=== PATIENT | female | born 1970 | race Caucasian/White ===

== ENCOUNTER 2016-12-22 20:23 | Emergency (ER) | payer OTHER ==
[2016-12-22 20:36] VITALS: BP 114/78; PULSE 83; TEMP 97.7
[2016-12-22 20:51] VITALS: O2SAT 98
--- NOTE | 2016-12-22 20:57 | ED PDOC ---
Arrival/HPI - General Chief Complaint: Eye Problem Time Seen by Provider: 12/22/16 20:30 - History of Present Illness Narrative History of Present Illness (Text): 12/22/16 21:01 46 year old female presents to the emergency room with complaint of eye redness of 24 hours. The patient started to experience some redness in her eyes last night before she went to bed. She states that her eyes were still red when she woke up. Her eyes became more irritated as the day progressed. She has a slight pain in her left eye only. Denies blurred vision, double vision, pain with movement, itching or dryness. She denies any trauma. Does not wear contacts. Denies f/c, sore throat, cough, ear pain or headache. (Manuel Donaldson) Associated Symptoms (Text): 12/22/16 21:15 Seen and examined with the resident. Our history and physical exam reveals a young woman with itchy watery red bilateral eyes since yesterday. No trauma. No visual disturbance. She has bilateral conjunctivitis. (Filipe Barkley) Past Medical History - Provider Review Nursing Documentation Reviewed: Yes - Psychiatric Hx Substance Use: No Family/Social History - Physician Review Nursing Documentation Reviewed: Yes Family/Social History: Unknown Family HX Smoking Status: no Hx Alcohol Use: No Hx Substance Use: No Allergies/Home Meds Allergies/Adverse Reactions: Allergies No Known Allergies Allergy (Verified 12/22/16 20:36) Review of Systems - Physician Review All systems were reviewed & negative as marked: Yes - Review of Systems Constitutional: absent: Fatigue, Fevers Eyes: Eye Pain (left eye only), Other (Redness in both eyes). absent: Vision Changes ENT: absent: Hearing Changes, Tinnitus, Sore Throat, Rhinorrhea, Sinus Congestion Respiratory: absent: SOB, Cough Gastrointestinal: absent: Nausea, Vomiting Skin: absent: Rash Physical Exam Vital Signs Reviewed: Yes Temperature: Afebrile Blood Pressure: Normal Pulse: Regular Respiratory Rate: Normal Appearance: Positive for: Well-Appearing, Non-Toxic, Comfortable Pain Distress: None Mental Status: Positive for: Alert and Oriented X 3 - Systems Exam Head: Present: Atraumatic, Normocephalic Pupils: Present: PERRL Extroacular Muscles: Present: EOMI Conjunctiva: Present: Injected (b/l). No: Icteric Mouth: Present: Moist Mucous Membranes Pharnyx: Present: Normal. No: ERYTHEMA, EXUDATE, TONSILS ENLARGED Nose (External): Present: Atraumatic Nose (Internal): Present: Normal Inspection, No Active Bleeding, Moist Vital Signs Temp Pulse Resp BP Pulse Ox 12/22/16 21:01 16 98 12/22/16 20:51 97.7 F 83 17 98 12/22/16 20:30 97.7 F 83 18 114/78 99 Medical Decision Making ED Course and Treatment: 12/22/16 21:14 Patient Seen With Resident: In agreement with resident note and more details are present in their notes. Patient was seen and evaluated with resident, came up with plan and treatment together. (Filipe Barkley) 12/22/16 21:07 Conjunctivitis b/l - Visual Acuity (w/glasses) - 20/25 on left - 20/20 on right - Given script for Gentamicin Ophthalmic drops - Referral given for Dr. Tenzin Cabrera Dispo: Home. Patient to follow up with Primary Care Physician within 1 week. If symptoms worsen or has any concerns, patient is to return to ED. (Manuel Donaldson) Disposition/Present on Arrival - Present on Arrival Any Indicators Present on Arrival: No History of DVT/PE: No History of Uncontrolled Diabetes: No Urinary Catheter: No History of Decub. Ulcer: No History Surgical Site Infection Following: None - Disposition Have Diagnosis and Disposition been Completed?: Yes Disposition Time: 21:10 Patient Plan: Discharge - Disposition Diagnosis: Conjunctivitis Disposition: HOME/ ROUTINE Patient Problems: Current Active Problems Problem Status Onset Conjunctivitis Acute Condition: GOOD Discharge Instructions (ExitCare): Conjunctivitis (ED) Prescriptions: Gentamicin Sulfate [Garamycin 0.3% Opth] 5 ml OD QID #1 bottle Referrals: Tacho Cabrera MD [Staff Provider] - Follow up with primary Forms: [employer] ([employer])
[2016-12-22 21:02] VITALS: RESP 16
== END 2016-12-22 21:01 | disposition home or self-care (01) ==
LOC: ED 20:23
DX: H10.9 Unspecified conjunctivitis (principal)